=== PATIENT | female | born 1980 | race Caucasian/White ===

== ENCOUNTER 2017-03-22 18:33 | Emergency (ER) | payer MEDICAID ==
[2017-03-22 18:50] VITALS: BP 128/70
--- NOTE | 2017-03-22 19:33 | EDM.PDOC ---
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 Right Hand Pain Score (Numeric/FACES): 8 - Related Data Allergies Allergy/AdvReac Type Severity Reaction Status Date / Time azithromycin Allergy Nausea and Verified 03/22/17 19:15 Vomiting latex Allergy Rash Verified 03/22/17 19:15 Home Meds: Home Meds FLUoxetine HCl [Fluoxetine HCl] 40 mg PO DAILY 03/22/17 [History] buPROPion HCl [Forfivo Xl] 450 mg PO DAILY 03/22/17 [History] Past Medical History - Past Health History Medical/Surgical History: Denies Medical/Surgical History Social & Family History - Family History Family Medical History: Noncontributory - Tobacco Use Smoking Status *Q: Current Every Day Smoker Years of Tobacco use: 15 Packs/Tins Daily: 0.5 Second Hand Smoke Exposure: No - Caffeine Use Caffeine Use: Reports: None - Alcohol Use Days Per Week of Alcohol Use: 1 Number of Drinks Per Day: 6 Total Drinks Per Week: 6 - Recreational Drug Use Recreational Drug Use: No Review of Systems - Review of Systems Review Of Systems: See Below Constitutional: Reports: No Symptoms Eyes: Reports: No Symptoms Ears: Reports: No Symptoms Nose: Reports: No Symptoms Mouth/Throat: Reports: No Symptoms Respiratory: Reports: No Symptoms Cardiovascular: Reports: No Symptoms GI/Abdominal: Reports: No Symptoms Genitourinary: Reports: No Symptoms Musculoskeletal: Reports: Other (hand pain) Skin: Reports: No Symptoms Neurological: Reports: No Symptoms Psychiatric: Reports: No Symptoms ED EXAM, GENERAL - Physical Exam Exam: See Below Exam Limited By: No Limitations General Appearance: Alert, WD/WN, No Apparent Distress Extremities: Other (mild tender over R 1st MC, no swell, no ecchymosis, wrist and rest of hand NT, XR neg) Course - Vital Signs Last Recorded V/S: Last Vital Signs Temp 36.6 C 03/22/17 18:47 Pulse 72 03/22/17 18:47 Resp 16 03/22/17 18:47 BP 128/70 03/22/17 18:47 Pulse Ox 98 03/22/17 18:47 - Orders/Labs/Meds Orders: Active Orders 24 hr Category Date Time Status Hand Comp Min 3V Rt [CR] Stat Exams 03/22/17 18:38 Ordered Departure - Departure Time of Disposition: 19:33 Disposition: Home, Self-Care 01 Condition: Good Clinical Impression: Contusion of hand, right - Discharge Information Instructions: Hand Contusion Referrals: Karo Hanson NP [Primary Care Provider] - Additional Instructions: Use ice for 15 minutes twice tonight, and every 2 hours tomorrow if needed. Take ibuprofen 200 mg 3 tabs and acetaminophen 500 mg 2 tabs tonight, may repeat 4 times tomorrow if needed. See your doctor in 2 days if not 90% better by then. - My Orders Last 24 Hours: My Active Orders 03/22/17 18:38 Hand Comp Min 3V Rt [CR] Stat - Assessment/Plan Last 24 Hours: My Active Orders 03/22/17 18:38 Hand Comp Min 3V Rt [CR] Stat
--- NOTE | 2017-03-23 11:06 | CR ---
INDICATION: Fall, pain thenar eminence - base of thumb. RIGHT HAND: Three views of the right hand revealed no evidence of an acute fracture, dislocation, or other significant bone or joint abnormality. MTDD
== END 2017-03-22 19:52 | disposition home or self-care (01) ==
LOC: FB.ED 18:33
DX: S60.221A Contusion of right hand, initial encounter (principal); Z91.040 Latex allergy status; Z88.1 Allergy status to other antibiotic agents; Z79.899 Other long term (current) drug therapy; F17.210 Nicotine dependence, cigarettes, uncomplicated; W19.XXXA Unspecified fall, initial encounter
CPT/HCPCS: 73130-RT; 99283

== ENCOUNTER 2017-06-04 17:37 | Emergency (ER) | payer MEDICAID ==
--- NOTE | 2017-06-04 18:35 | EDM.PDOC ---
ED HPI GENERAL MEDICAL PROBLEM - General Chief Complaint: Abdominal Pain Stated Complaint: UPPER ABD PAIN Time Seen by Provider: 06/04/17 17:54 Source of Information: Reports: Patient, Family History Limitations: Reports: No Limitations - History of Present Illness INITIAL COMMENTS - FREE TEXT/NARRATIVE: 36 y.o.w.arnaud came to the ed due to acute epigastric pain which she has off on for several years. No new acute medical issues. Pt was signed out to Dr. Jaffe at 7 am due to shift changes. BP 141/87 Puls 102 RR 20 Pulse ox 98% on RA, Temp 37.1 Onset: Today Onset Date: 06/04/17 Onset Time: 08:00 Duration: Hour(s): Location: Reports: Abdomen Quality: Reports: Ache, Burning, Dull, Same as Previous Episode (for 20 years) Severity: Moderate Improves with: Reports: Medication Worsens with: Reports: Movement Context: Reports: Other (gastritis) Upper abdominal pain Pain Score (Numeric/FACES): 4 - Related Data Allergies Allergy/AdvReac Type Severity Reaction Status Date / Time azithromycin Allergy Nausea and Verified 06/04/17 17:55 Vomiting latex Allergy Rash Verified 06/04/17 17:55 Home Meds: Home Meds HYDROmorphone [Dilaudid] 1 - 2 tab PO Q4H PRN 06/04/17 [History] Ondansetron [Zofran ODT] 4 mg Q4H PRN 06/04/17 [History] Past Medical History - Past Health History Medical/Surgical History: Denies Medical/Surgical History Social & Family History - Family History Family Medical History: Noncontributory - Tobacco Use Smoking Status *Q: Current Every Day Smoker Years of Tobacco use: 15 Packs/Tins Daily: 0.5 Second Hand Smoke Exposure: No - Caffeine Use Caffeine Use: Reports: None - Alcohol Use Days Per Week of Alcohol Use: 1 Number of Drinks Per Day: 6 Total Drinks Per Week: 6 - Recreational Drug Use Recreational Drug Use: No ED ROS GENERAL - Review of Systems Review Of Systems: See Below Constitutional: Reports: No Symptoms HEENT: Reports: No Symptoms Respiratory: Reports: No Symptoms Cardiovascular: Reports: No Symptoms Endocrine: Reports: No Symptoms GI/Abdominal: Reports: Abdominal Pain : Reports: No Symptoms Musculoskeletal: Reports: No Symptoms Skin: Reports: No Symptoms Neurological: Reports: No Symptoms Psychiatric: Reports: No Symptoms Hematologic/Lymphatic: Reports: No Symptoms Immunologic: Reports: No Symptoms ED EXAM, GI/ABD - Physical Exam Exam: See Below Exam Limited By: No Limitations General Appearance: Alert, WD/WN, Mild Distress Eyes: Bilateral: Normal Appearance Ears: Normal External Exam Nose: Normal Inspection Throat/Mouth: Normal Inspection Head: Atraumatic, Normocephalic Neck: Normal Inspection, Supple, Non-Tender Respiratory/Chest: No Respiratory Distress, Lungs Clear Cardiovascular: Normal Peripheral Pulses GI/Abdominal Exam: Tender (epigastric) (Female) Exam: Deferred Rectal (Female) Exam: Deferred Back Exam: Normal Inspection, Full Range of Motion Extremities: Normal Inspection, Normal Range of Motion, Non-Tender, No Pedal Edema Neurological: Alert, Oriented, CN II-XII Intact, Normal Cognition, Normal Gait, No Motor/Sensory Deficits Psychiatric: Normal Affect, Normal Mood Skin Exam: Warm, Dry, Intact, Normal Color, No Rash Lymphatic: No Adenopathy Course - Vital Signs Text/Narrative:: 36 y.o.w.f came to the ed due to acute epigastric pain which she has off on for several years. No new acute medical issues. Pt was signed out to Dr. Jaffe at 7 am due to shift changes. BP 141/87 Puls 102 RR 20 Pulse ox 98% on RA, Temp 37.1 PE: Epigastric pain Tx: GI cocktail, Zofran Impression: Epigastric pain Pt was signed out to Dr. Monte at 7 pm due to shift change. Last Recorded V/S: Last Vital Signs Temp 37.0 C 06/04/17 20:05 Pulse 104 H 06/04/17 17:54 Resp 18 06/04/17 20:05 BP 124/85 06/04/17 20:05 Pulse Ox 100 06/04/17 20:05 - Orders/Labs/Meds Labs: Laboratory Tests 06/04/17 06/04/17 Range/Units 19:15 19:15 WBC 8.5 (4.5-12.0) X10-3/uL RBC 4.63 (3.23-5.20) x10(6)uL Hgb 14.3 (11.5-15.5) g/dL Hct 42.0 (30.0-51.3) % MCV 90.7 (80-96) fL MCH 30.9 (27.7-33.6) pg MCHC 34.0 (32.2-35.4) g/dL RDW 12.9 (11.5-15.5) % Plt Count 356 (125-369) X10(3)uL MPV 6.9 L (7.4-10.4) fL Neut % (Auto) 48.6 (46-82) % Lymph % (Auto) 37.9 H (13-37) % Bowie % (Auto) 7.2 (4-12) % Eos % (Auto) 6 H (1.0-5.0) % Baso % (Auto) 1 (0-2) % Neut # (Auto) 4.1 (1.6-8.3) # Lymph # (Auto) 3.2 (0.6-5.0) # Bowie # (Auto) 0.6 (0.0-1.3) # Eos # (Auto) 0.5 (0.0-0.8) # Baso # (Auto) 0.1 (0.0-0.2) # Sodium 140 (135-145) mmol/L Potassium 4.2 (3.5-5.3) mmol/L Chloride 106 (100-110) mmol/L Carbon Dioxide 25 (21-32) mmol/L BUN 12 (7-18) mg/dL Creatinine 0.8 (0.55-1.02) mg/dL Est Cr Clr Drug Dosing 85.56 mL/min Estimated GFR (MDRD) > 60 (>60) BUN/Creatinine Ratio 15.0 (9-20) Glucose 96 (80-116) mg/dL Calcium 9.4 (8.6-10.2) mg/dL Total Bilirubin 0.3 (0.1-1.3) mg/dL Direct Bilirubin 0.05 L (0.10-0.20) mg/dL AST 24 (5-25) IU/L ALT 42 H (12-36) U/L Alkaline Phosphatase 50 L (56-112) IU/L Total Protein 7.6 (6.0-8.0) g/dL Albumin 3.9 (3.5-5.2) g/dL Amylase 47 (25-115) U/L Meds: Medications Discontinued Medications Generic Name Dose Route Start Last Admin Trade Name Giancarlo PRN Reason Stop Dose Admin Al Hydroxide/Mg Hydroxide 15 0 ml 06/04/17 18:51 06/04/17 19:12 ml/ Lidocaine HCl 15 ml PO 06/04/17 18:52 15 ml ONETIME ONE Administration Diazepam 10 mg 06/04/17 19:44 06/04/17 19:54 Valium IM 06/04/17 19:45 10 mg ONETIME ONE Administration Ondansetron HCl 8 mg 06/04/17 18:51 06/04/17 19:12 Zofran Odt PO 06/04/17 18:52 8 mg ONETIME ONE Administration Departure - Departure Time of Disposition: 21:00 Disposition: Home, Self-Care 01 Condition: Good Clinical Impression: Epigastric cramping - Discharge Information Referrals: Kaor Hanson NP [Primary Care Provider] - Forms: ED Department Discharge
[2017-06-04] MEDS ORDERED: Alum Hydroxide/Mag Hydroxide 15 ML, Lidocaine 2% 15 ML PO ONE ×2 (18:51)
[2017-06-04] MEDS ORDERED: Ondansetron 8 MG Tab.DIS PO ONE (18:51)
[2017-06-04 20:11] VITALS: BP 124/85
--- NOTE | 2017-06-08 07:42 | ER ---
DATE SEEN: 06/04/2017 REASON FOR VISIT: Abdominal pain. HISTORY OF PRESENT ILLNESS: This is a 36-year-old female with chronic abdominal pain. Pain is in the epigastrium, started onset this afternoon around 1500. She has had this previously and was in the ER on April 28. Also seen by GI physician on May 15 and has previously been seen at the [facility], at the [facility], and other places. 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 She does have, however, anxiety disorder that makes things worse. REVIEW OF SYSTEMS: Tonight, she denies vomiting. Has mild nausea, but no diarrhea. No fever or chest pain. MEDICATIONS: Her current medication list was reviewed. She is on Dilaudid which she took several tablets today. ALLERGIES: Azithromycin and latex. PHYSICAL EXAMINATION: GENERAL: She is tearful, but in no distress. VITAL SIGNS: Blood pressure 146/91, pulse is 99, and temp 98.9. ABDOMEN: Soft, nontender, except in the epigastrium. No masses are palpable. Bowel sounds are hyperactive. MENTAL STATUS: Tearful, anxious, but answers questions well. CHEST: Clear. CARDIOVASCULAR: Normal. LABORATORY DATA: CBC, CMP negative. Amylase is normal. IMPRESSION: 1. Epigastric pain, uncertain etiology. 2. Anxiety. PLAN: I gave her 10 mg of IM diazepam. Discharged her home. She had previously gotten a GI cocktail and Zofran, which seemed to help the nausea. TIME SEEN: 1900 hours. /[id number] IDA/NNEKA
== END 2017-06-04 20:15 | disposition home or self-care (01) ==
LOC: FB.ED 17:37
DX: R10.13 Epigastric pain (principal); F41.9 Anxiety disorder, unspecified; Z88.1 Allergy status to other antibiotic agents; Z91.040 Latex allergy status; Z90.49 Acquired absence of other specified parts of digestive tract
CPT/HCPCS: 36415; 80048; 80076; 82150; 85025; 96372; 99283; A9270; J3360

== ENCOUNTER 2017-09-13 02:45 | Emergency (ER) | payer MEDICAID ==
[2017-09-13] MEDS ORDERED: LORazepam 2 MG/ML SDV IVPUSH ONE (02:58)
[2017-09-13] MEDS ORDERED: fentaNYL 100 MCG/2 ML SDV IVPUSH ONE (02:58)
[2017-09-13] MEDS ORDERED: Sodium Chloride 0.9% 10 ML Syringe FLUSH PRN (02:59)
[2017-09-13] MEDS ORDERED: HYDROmorphone 2 MG/ML SDV IVPUSH ONE (03:47)
[2017-09-13 04:19] VITALS: BP 112/75
--- NOTE | 2017-09-13 08:03 | ER ---
DATE SEEN: 09/13/2017 CHIEF COMPLAINT: Right knee dislocation. HISTORY OF PRESENT ILLNESS: A 37-year-old female brought in by ambulance complaining of dislocation of the right knee. She states that she has had 2 or 3 episodes prior of "dislocation." She complains of sudden onset pain preceded by a pop and inability to bend it. PAST MEDICAL HISTORY: Functional gastrointestinal disorders. ALLERGIES: Azithromycin and latex. REVIEW OF SYSTEMS: Negative for fever or chills. PHYSICAL EXAMINATION: GENERAL: Anxious, tearful. VITAL SIGNS: Blood pressure is normal. Pulse is 120, temperature is 98.2. EXTREMITIES: Right knee flexed, but no obvious swelling or deformity noted. There is some tenderness to palpation. Range of motion was unlimited. IMPRESSION: Right knee internal derangement. PLAN: I do not see any dislocation. However, I advised her to discuss perhaps obtaining an MRI with her PCP. In the ER, I gave her lorazepam 1 mg IV, fentanyl 50 mcg, and 2 mg of Dilaudid. Symptoms improved and sent home on ice, elevation, wrapping, and crutch as needed. /[id number] IDA/NNEKA
== END 2017-09-13 05:00 | disposition home or self-care (01) ==
LOC: FB.ED 02:45
DX: M23.91 Unspecified internal derangement of right knee (principal); Z88.1 Allergy status to other antibiotic agents; Z91.040 Latex allergy status
CPT/HCPCS: 96374; 96375; 99283; J1170; J2060; J3010; J7050

== ENCOUNTER 2020-08-26 19:08 | Emergency (ER) | payer MEDICAID ==
--- NOTE | 2020-08-26 19:35 | EDM.PDOC ---
ED HPI GENERAL MEDICAL PROBLEM - General Stated Complaint: SOMTHING IN HER EYE Time Seen by Provider: 08/26/20 19:10 Source of Information: Reports: Patient History Limitations: Reports: No Limitations - History of Present Illness INITIAL COMMENTS - FREE TEXT/NARRATIVE: c/o R eye irritation walking behind power mower, no glasses or contacts felt irritation in her R eye, felt like an eyelash in her eye, did not feel anything hit her face or eye right eye Pain Score (Numeric/FACES): 10 - Related Data Allergies Allergy/AdvReac Type Severity Reaction Status Date / Time azithromycin Allergy Nausea and Verified 09/13/17 03:41 Vomiting latex Allergy Rash Verified 09/13/17 03:41 Home Meds: Home Meds HYDROmorphone [Dilaudid] 1 - 2 tab PO Q4H PRN 06/04/17 [History] Ondansetron [Zofran ODT] 4 mg Q4H PRN 06/04/17 [History] DULoxetine [Cymbalta] 60 mg PO DAILY 09/13/17 [History] Naproxen 500 mg DAILY 09/13/17 [History] methocarbamoL [Methocarbamol] 500 mg DAILY 09/13/17 [History] predniSONE [Prednisone] 60 mg PO ASDIRECTED 09/13/17 [History] Past Medical History - Past Health History Medical/Surgical History: Denies Medical/Surgical History Gastrointestinal History: Reports: Other (See Below) Other Gastrointestinal History: spincter of Ode disfunction 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: Musculoskeletal History: Reports: Back Pain, Chronic, Neck Pain, Chronic, Other (See Below) Other Musculoskeletal History: R knee dislocations in past, have had swelling in neck--is on Prednisone for swelling Neurological History: Reports: Migraines Psychiatric History: Reports: Anxiety, Depression Endocrine/Metabolic History: Reports: Obesity/BMI 30+ Hematologic History: Reports: Anemia - Past Surgical History HEENT Surgical History: Reports: Adenoidectomy, Oral Surgery, Tonsillectomy GI Surgical History: Reports: Colonoscopy, EGD Musculoskeletal Surgical History: Reports: Arthroscopic Knee Other Musculoskeletal Surgeries/Procedures:: Has had several knee scopes both knees. Social & Family History - Family History Family Medical History: No Pertinent Family History - Caffeine Use Caffeine Use: Reports: Coffee, Energy Drinks, Soda ED ROS GENERAL - Review of Systems Review Of Systems: See Below Constitutional: Reports: No Symptoms HEENT: Reports: Eye Pain Respiratory: Reports: No Symptoms Cardiovascular: Reports: No Symptoms Endocrine: Reports: No Symptoms GI/Abdominal: Reports: No Symptoms : Reports: No Symptoms Musculoskeletal: Reports: No Symptoms Skin: Reports: No Symptoms Neurological: Reports: No Symptoms Psychiatric: Reports: No Symptoms Hematologic/Lymphatic: Reports: No Symptoms Immunologic: Reports: No Symptoms ED EXAM GENERAL W FULL EYE - Physical Exam Exam: See Below Exam Limited By: No Limitations General Appearance: Alert, WD/WN, No Apparent Distress Comments: R eye with no fb on inverting upper and lower lid, no corneal abrasion under black light after tetracaine and flourscein, dye washed from eye with 20 ml fluorescein visual acuity 20/30 b/l uncorrected no d/c, no swell, minimal hyperemia Ears: Hearing Grossly Normal Nose: Normal Inspection Throat/Mouth: Normal Inspection Head: Atraumatic Neck: Normal Inspection, Supple, Non-Tender, Full Range of Motion. No: Lymphadenopathy (R), Lymphadenopathy (L) Respiratory/Chest: No Respiratory Distress Neurological: Alert, Oriented, CN II-XII Intact, Normal Cognition, No Motor/Sensory Deficits Skin Exam: Warm, Dry, Intact, Normal Color, No Rash Lymphatic: No Adenopathy Course - Vital Signs Last Recorded V/S: Last Vital Signs Temp 36.1 C 08/26/20 19:08 Pulse 102 H 08/26/20 19:08 Resp 18 08/26/20 19:08 BP 159/103 H 08/26/20 19:08 Pulse Ox 100 08/26/20 19:08 - Re-Assessments/Exams Free Text/Narrative Re-Assessment/Exam: 08/26/20 19:37 eye exam is wnl, hx c/w a small fb (dust or chafe) that irritated eye and had washed out prior to arrival Departure - Departure Time of Disposition: 19:30 Disposition: Home, Self-Care 01 Condition: Good Clinical Impression: Irritation of right eye - Discharge Information *PRESCRIPTION DRUG MONITORING PROGRAM REVIEWED*: Not Applicable *COPY OF PRESCRIPTION DRUG MONITORING REPORT IN PATIENT [id number]: Not Applicable Instructions: Eye Foreign Body Referrals: Karo Hanson NP [Primary Care Provider] - Additional Instructions: Avoid rubbing eye. Use cool compress or saline eye drops as needed. See your eye doctor tomorrow if you are still having symptoms. Sepsis Event Note (ED) - Evaluation Sepsis Screening Result: No Definite Risk - Focused Exam Vital Signs: Vital Signs Temp Pulse Resp BP Pulse Ox 08/26/20 19:08 36.1 C 102 H 18 159/103 H 100
[2020-08-26 19:43] VITALS: BP 136/93; PULSE 92
== END 2020-08-26 19:38 | disposition home or self-care (01) ==
LOC: FB.ED 19:08
DX: H57.89 Other specified disorders of eye and adnexa (principal); E66.9 Obesity, unspecified; Z88.1 Allergy status to other antibiotic agents; Z91.040 Latex allergy status; Z68.38 Body mass index [BMI] 38.0-38.9, adult
CPT/HCPCS: 99283

== ENCOUNTER 2022-01-09 07:40 | Day surgery (SDC) | payer MEDICAID ==
[2022-01-09] MEDS ORDERED: Midazolam 1 MG/ML 2 ML SDV IV ONE (07:41)
[2022-01-09] MEDS ORDERED: Propofol 200 MG/20 ML SDV IV ONE (07:41)
[2022-01-09] MEDS ORDERED: Lactated Ringers 1,000 ML IV SCH (07:45)
[2022-01-09] MEDS ORDERED: Sodium Chloride 0.9% 10 ML Syringe FLUSH PRN (07:45)
[2022-01-09] MEDS ORDERED: Ondansetron 4 MG/2 ML SDV IVPUSH ONE (08:12)
[2022-01-09 10:10] VITALS: BP 153/106; PULSE 96
== END 2022-01-09 10:00 | disposition home or self-care (01) ==
LOC: FB.SDS 07:40
PROVIDERS: ATTEND Surgery
DX: R19.4 Change in bowel habit (principal); R15.9 Full incontinence of feces; F41.9 Anxiety disorder, unspecified; J45.909 Unspecified asthma, uncomplicated; Z90.49 Acquired absence of other specified parts of digestive tract; Z98.890 Other specified postprocedural states; Z87.891 Personal history of nicotine dependence; Z86.010 Personal history of colon polyps; Z80.0 Family history of malignant neoplasm of digestive organs; Z79.899 Other long term (current) drug therapy; Z91.048 Other nonmedicinal substance allergy status; Z88.1 Allergy status to other antibiotic agents; Z91.040 Latex allergy status
CPT/HCPCS: 00811-QZ; J2250; J2405; J2704; J7120

== ENCOUNTER 2023-11-11 08:21 | Day surgery (SDC) | payer MEDICAID ==
[2023-11-11] MEDS ORDERED: Propofol 200 MG/20 ML SDV IV ONE (08:22)
[2023-11-11] MEDS ORDERED: Midazolam 1 MG/ML 2 ML SDV IV ONE (08:22)
[2023-11-11] MEDS ORDERED: Lidocaine 2% 100 MG/5 ML Syringe IVPUSH ONE (08:22)
[2023-11-11] MEDS ORDERED: Sodium Chloride 0.9% 10 ML Syringe FLUSH PRN (08:30)
[2023-11-11] MEDS: Lactated Ringers 1,000 ML IV SCH (09:33)
[2023-11-11 12:12] VITALS: BP 112/77; PULSE 83
== END 2023-11-11 12:25 | disposition home or self-care (01) ==
LOC: FB.SDS 08:21
PROVIDERS: ATTEND Surgery
DX: K31.84 Gastroparesis (principal); K21.9 Gastro-esophageal reflux disease without esophagitis; F41.9 Anxiety disorder, unspecified; Z87.891 Personal history of nicotine dependence
CPT/HCPCS: 00731; J2250; J2704; J7120

== ENCOUNTER 2024-02-19 06:53 | Day surgery (SDC) | payer MEDICAID ==
[2024-02-19] MEDS ORDERED: Lidocaine 2% 5 ML SDV INJECT ONE (06:54)
[2024-02-19] MEDS ORDERED: Propofol 200 MG/20 ML SDV IV ONE (06:54)
[2024-02-19] MEDS ORDERED: Sodium Chloride 0.9% 10 ML Syringe FLUSH PRN (07:00)
[2024-02-19] MEDS: Lactated Ringers 1,000 ML IV SCH (07:58)
[2024-02-19] MEDS: Simethicone Drops 40 MG/0.6 ML 30 ML Bottle ONE (08:36)
[2024-02-19 10:28] VITALS: BP 128/79; PULSE 67
[2024-02-20 23:26] LABS: LACTOFERRIN,FECAL BY ELISA Negative (Negative)
[2024-02-21 17:34] LABS: ADENOVIRUS 40/41 PCR Not Detected; ASTROVIRUS PCR Not Detected; CAMPYLOBACTER PCR Not Detected; CRYPTOSPORIDIUM PCR Not Detected; CYCLOSPORA CAYETANENSIS PCR Not Detected; ENTAMOEBA HISTOLYTICA PCR Not Detected; ENTEROAGGREGATIVE E. COLI PCR Not Detected; ENTEROPATHOGENIC E. COLI PCR Not Detected; ENTEROTOXIGENIC E. COLI PCR Not Detected; GIARDIA LAMBLIA PCR Not Detected; NOROVIRUS GI/GII PCR Not Detected; PLESIOMONAS SHIGELLOIDES PCR Not Detected; ROTAVIRUS A PCR Not Detected; SALMONELLA PCR Not Detected; SAPOVIRUS PCR Not Detected; SHIG/ENTEROINVASIVE E COLI PCR Not Detected; SHIGA TOXIN-PRODUC E. COLI PCR Not Detected; VIBRIO CHOLERAE PCR Not Detected; VIBRIO PCR Not Detected; YERSINIA ENTEROCOLITICA PCR Not Detected
== END 2024-02-19 10:05 | disposition home or self-care (01) ==
LOC: FB.SDS 06:53
PROVIDERS: ATTEND Surgery
DX: R19.7 Diarrhea, unspecified (principal); F41.9 Anxiety disorder, unspecified; Z87.891 Personal history of nicotine dependence; Z79.899 Other long term (current) drug therapy; Z91.040 Latex allergy status; Z88.1 Allergy status to other antibiotic agents
CPT/HCPCS: 00811; 36415; 45380; 83630; 84132; 87507; 88305; A9270; J2704; J7120

== ENCOUNTER 2024-10-26 23:09 | Emergency (ER) | payer MEDICAID ==
[2024-10-26] MEDS: LORazepam 2 MG/ML SDV IM ONE (23:55)
[2024-10-27 00:29] VITALS: BP 130/81; PULSE 101
== END 2024-10-27 00:34 | disposition home or self-care (01) ==
LOC: FB.ED 23:09
DX: I15.8 Other secondary hypertension (principal); R45.89 Other symptoms and signs involving emotional state; I10 Essential (primary) hypertension; E78.00 Pure hypercholesterolemia, unspecified; Z79.899 Other long term (current) drug therapy; Z91.048 Other nonmedicinal substance allergy status; Z88.1 Allergy status to other antibiotic agents; Z91.040 Latex allergy status
CPT/HCPCS: 96372; 99283; J2060

== ENCOUNTER 2024-12-10 18:43 | Emergency (ER) | payer MEDICAID ==
[2024-12-10] MEDS: LORazepam 2 MG/ML SDV IVPUSH ONE ×2 (19:08→20:30)
[2024-12-10 19:21] LABS: BASOPHILS ABSOLUTE AUTO 0.1 x10-3/uL (0.0-0.1); BASOPHILS PERCENT AUTO 0.8 % (0.2-1.5); EOSINOPHILS ABSOLUTE AUTO 0.2 x10-3/uL (0.0-0.8); EOSINOPHILS PERCENT AUTO 2.4 % (0.6-8.1); LYMPHOCYTES ABSOLUTE AUTO 2.8 x10-3/uL (1.0-4.4); LYMPHOCYTES PERCENT AUTO 27.3 % (18.4-52.1); MEAN PLATELET VOLUME 6.5 fL (7.1-12.4); MONOCYTES ABSOLUTE AUTO 0.7 x10-3/uL (0.3-1.0); MONOCYTES PERCENT AUTO 7.2 % (4.4-15.7); NEUTROPHILS ABSOLUTE AUTO 6.4 x10-3/uL (1.5-6.3); NEUTROPHILS PERCENT AUTO 62.3 % (30.8-76.2); PLATELET COUNT,PLT 479 x10(3)uL (151-488); RED BLOOD CELL COUNT 4.87 x10(6)uL (3.60-5.20); RED CELL DISTRIBUTION WIDTH 13.4 % (12.3-16.5); WHITE BLOOD CELL COUNT,WBC 10.3 x10-3/uL (3.0-10.3)
[2024-12-10 19:24] LABS: BLOOD UREA NITROGEN,BUN 18 mg/dL (7-18); CARBON DIOXIDE,CO2 30 mmol/L (21-32); CHLORIDE,CL 103 mmol/L (100-110); CREATININE 1.0 mg/dL (0.55-1.02); EST CRCL DRUG DOSING (CG) 63.28 mL/min; ESTIMATED GFR 72 mL/min (>60); GLUCOSE RANDOM 86 mg/dL (80-116); POTASSIUM,K 3.6 mmol/L (3.5-5.3); SODIUM,NA 140 mmol/L (135-145)
[2024-12-10 19:33] LABS: A/G RATIO 1.0; ALANINE AMINOTRANSFERASE,ALT 86 U/L (12-36); ASPARTATE AMNIOTRANSFERASE,AST 37 IU/L (5-25); BILIRUBIN TOTAL 0.3 mg/dL (0.1-1.3); PROTEIN TOTAL,TP 7.8 g/dL (6.0-8.0)
[2024-12-10] MEDS: Ondansetron 4 MG/2 ML SDV IVPUSH ONE (19:44)
[2024-12-10] MEDS: HYDROmorphone 2 MG/ML SDV IVPUSH ONE (19:45)
[2024-12-10] MEDS: fentaNYL 100 MCG/2 ML SDV IVPUSH ONE (20:01)
[2024-12-10] MEDS: diphenhydrAMINE 50 MG/ML SDV IVPUSH ONE (20:37)
[2024-12-10] MEDS: Iopamidol 755 Mg/ML 100 ML Bottle IV SCH (21:41)
[2024-12-10] MEDS: fentaNYL 100 MCG/2 ML SDV IVPUSH PRN (21:53)
[2024-12-10] MEDS ORDERED: Haloperidol Lactate 2 MG/ML Oral Soln 15 ML Bottle PO ONE (22:13)
[2024-12-10 23:05] VITALS: BP 135/92; PULSE 100
== END 2024-12-10 22:50 | disposition home or self-care (01) ==
LOC: FB.ED 18:43
DX: K31.84 Gastroparesis (principal); F41.9 Anxiety disorder, unspecified; I10 Essential (primary) hypertension; E66.9 Obesity, unspecified; J45.909 Unspecified asthma, uncomplicated; Z79.899 Other long term (current) drug therapy; Z91.040 Latex allergy status; Z88.1 Allergy status to other antibiotic agents; Z88.8 Allergy status to other drugs, medicaments and biological substances; Z90.49 Acquired absence of other specified parts of digestive tract; Z90.710 Acquired absence of both cervix and uterus; Z68.43 Body mass index [BMI] 50.0-59.9, adult
CPT/HCPCS: 36415; 74177; 80053; 83690; 83735; 84484; 85025; 86140; 93005; 96372; 96374; 96375; 96376; 99285; J1171; J1200; J1630; J2060; J2405; J3010; Q9967; A9270-GY

== ENCOUNTER 2025-01-04 22:18 | Emergency (ER) | payer MEDICAID ==
[2025-01-04] MEDS ORDERED: Naloxone 0.4 MG/ML SDV IVPUSH PRN (22:42)
[2025-01-04] MEDS: Sodium Chloride 0.9% 10 ML Syringe FLUSH PRN (22:50)
[2025-01-04] MEDS: Ondansetron 4 MG/2 ML SDV IVPUSH ONE (22:54)
[2025-01-04] MEDS: HYDROmorphone 2 MG/ML SDV IVPUSH ONE (22:54)
[2025-01-04 23:12] LABS: BASOPHILS ABSOLUTE AUTO 0.1 x10-3/uL (0.0-0.1); BASOPHILS PERCENT AUTO 1.1 % (0.2-1.5); EOSINOPHILS ABSOLUTE AUTO 0.3 x10-3/uL (0.0-0.8); EOSINOPHILS PERCENT AUTO 3.3 % (0.6-8.1); LYMPHOCYTES ABSOLUTE AUTO 3.0 x10-3/uL (1.0-4.4); LYMPHOCYTES PERCENT AUTO 38.2 % (18.4-52.1); MEAN PLATELET VOLUME 6.5 fL (7.1-12.4); MONOCYTES ABSOLUTE AUTO 0.6 x10-3/uL (0.3-1.0); MONOCYTES PERCENT AUTO 8.3 % (4.4-15.7); NEUTROPHILS ABSOLUTE AUTO 3.9 x10-3/uL (1.5-6.3); NEUTROPHILS PERCENT AUTO 49.1 % (30.8-76.2); PLATELET COUNT,PLT 458 x10(3)uL (151-488); RED BLOOD CELL COUNT 4.66 x10(6)uL (3.60-5.20); RED CELL DISTRIBUTION WIDTH 13.6 % (12.3-16.5); WHITE BLOOD CELL COUNT,WBC 7.8 x10-3/uL (3.0-10.3)
[2025-01-04 23:16] LABS: BLOOD UREA NITROGEN,BUN 13 mg/dL (7-18); CARBON DIOXIDE,CO2 31 mmol/L (21-32); CHLORIDE,CL 103 mmol/L (100-110); CREATININE 1.2 mg/dL (0.55-1.02); EST CRCL DRUG DOSING (CG) 50.52 mL/min; ESTIMATED GFR 58 mL/min (>60); GLUCOSE RANDOM 114 mg/dL (80-116); POTASSIUM,K 3.6 mmol/L (3.5-5.3); SODIUM,NA 139 mmol/L (135-145)
[2025-01-04 23:22] LABS: A/G RATIO 0.9; ALANINE AMINOTRANSFERASE,ALT 48 U/L (12-36); ASPARTATE AMNIOTRANSFERASE,AST 25 IU/L (5-25); BILIRUBIN TOTAL 0.3 mg/dL (0.1-1.3); PROTEIN TOTAL,TP 7.6 g/dL (6.0-8.0)
[2025-01-04] MEDS: diphenhydrAMINE 50 MG/ML SDV IVPUSH ONE (23:26)
[2025-01-05 00:32] VITALS: BP 108/62; PULSE 94
== END 2025-01-05 00:28 | disposition home or self-care (01) ==
LOC: FB.ED 22:18
DX: K31.84 Gastroparesis (principal); E86.0 Dehydration; I10 Essential (primary) hypertension; J45.909 Unspecified asthma, uncomplicated; E66.9 Obesity, unspecified; Z68.41 Body mass index [BMI] 40.0-44.9, adult; Z90.49 Acquired absence of other specified parts of digestive tract; Z90.710 Acquired absence of both cervix and uterus; Z87.891 Personal history of nicotine dependence; Z88.1 Allergy status to other antibiotic agents; Z91.040 Latex allergy status; Z91.048 Other nonmedicinal substance allergy status; Z79.899 Other long term (current) drug therapy
CPT/HCPCS: 36415; 80053; 83605; 83690; 83735; 84484; 85025; 86140; 93005; 96361; 96374; 96375; 99284; J1171; J1200; J1630; J2405; J7030; 93010